=== PATIENT | female | born 1945 | race Caucasian/White ===

== ENCOUNTER → 2016-11-14 | Outpatient (CLI) | payer OTHER ==
--- NOTE | ~2016-11-14 | MY11 ---
[facility] A Service of [facility] RADIOLOGY TEXT RESULTS PATIENT: TANA FERRARI LOCATION: [facility] : 47 UNIT #: [id number] AGE: [address]: Renny Keith APRN SEX: F ORDER DR: [id number] [facility] [address] [place], [place] [address] [id number] O MR#: [id number] Acc #: [id number] NAME: TANA FERRARI : 1945 SEX: F STUDY DATE/TIME: 11/14/2016 16:20 UNIT: [facility] ROOM: STUDY DESCRIPTION: MY Mammogram Screening Dig [place] Attending Physician: Renny Keith A.P.R.N. Ordering Physician: Renny Keith A.P.R.N. Primary Care Physician: Juan Carlos Humphries M.D. MEDICAL IMAGING REPORT This report is preliminary unless electronic signature is present EXAM Bilateral digital screening mammogram CAD 11/14/2016 INDICATIONS 70-year-old female for routine screening. No reported problems and no personal history of breast cancer. Family history positive in a cousin. No surgeries. CC and MLO views of breast were can be with an approved CAD device COMPARISON 07/15/2014 07/28/2013 04/29/2012. FINDINGS Breast parenchyma is composed of scattered fibroglandular densities. The pattern is unchanged. There is no new dominant nodule, mass or suspicious cluster of microcalcifications. IMPRESSION Negative screening mammogram. A year followup recommended. Patients over the age of 40 are entered into a reminder system with target due date for the next mammogram. A result letter will also be sent to the patient. BIRADS: 1 Negative. Dictated by... Hernandez Warren M.D. THIS IS AN ELECTRONICALLY VERIFIED REPORT Hernandez Warren M.D. at 11/15/2016 4:53 PM Damian [facility] A Service of [facility] RADIOLOGY TEXT RESULTS PATIENT: TANA FERRARI LOCATION: [facility] : 47 UNIT #: [id number] AGE: [address]: Renny Keith APRN SEX: F ORDER DR: TD: 11/15/2016 12:06 JOB #: [id number] MEDICAL IMAGING REPORT COPY
--- NOTE | ~2016-11-14 | BD1 ---
[facility] A Service of [facility] RADIOLOGY TEXT RESULTS PATIENT: TANA FERRARI LOCATION: [facility] : 47 UNIT #: [id number] AGE: [address]: Renny Keith APRN SEX: F ORDER DR: [id number] [facility] [address] [place], [place] [address] [id number] O MR#: [id number] Acc #: [id number] NAME: TANA FERRARI : 1945 SEX: F STUDY DATE/TIME: 11/14/2016 16:12 UNIT: [facility] ROOM: STUDY DESCRIPTION: BD Dexa Bone Dens 1+ Site Attending Physician: Renny Keith A.P.R.N. Ordering Physician: Renny Keith A.P.R.N. Primary Care Physician: Juan Carlos Humphries M.D. MEDICAL IMAGING REPORT This report is preliminary unless electronic signature is present EXAM DXA scan 11/14/2016 HISTORY Status post menopause with no hormone replacement therapy. Osteopenia. Arthritis. Hypertension with blood pressure medication for 2 years. FINDINGS Bone mineral density in the lumbar spine from L1-L4 was 0.682 g/cm2 which is 3.3 standard deviations below the mean when compared to the young adult reference population which is characteristic of osteoporosis. This is 1.2 standard deviations below the mean when compared to the age-matched population. Bone mineral density in the left femoral neck was 0.514 g/cm2 which is 3 standard deviations below the mean when compared to the young adult reference population which is characteristic of osteoporosis. This is 1.2 standard deviations below the mean when compared to the age-matched population. Compared with 06/01/2014, there has been a decrease in bone mineral density in the left hip of 0.5%. IMPRESSION Bone mineral density in the lumbar spine characteristic of osteoporosis and within the left hip characteristic of osteoporosis. Compared with 06/01/2014, there has been a decrease in bone mineral density in the lumbar spine and the left hip. Dictated by... Az Thompson M.D. THIS IS AN ELECTRONICALLY VERIFIED REPORT Az Thompson M.D. at 11/15/2016 10:54 AM KRT/bozena [facility]. [facility] A Service of [facility] RADIOLOGY TEXT RESULTS PATIENT: TANA FERRARI [id number] 47 UNIT #: [id number] AGE: [address]: Renny Keith [employer] ADJUSTER SEX: F ORDER DR: TD: 11/14/2016 22:42 JOB #: [id number] MEDICAL IMAGING REPORT COPY
== END | disposition home or self-care (01) ==
LOC: CWCC 15:49
DX: Z13.820 Encounter for screening for osteoporosis (principal); Z12.31 Encounter for screening mammogram for malignant neoplasm of breast; M81.0 Age-related osteoporosis without current pathological fracture; Z80.3 Family history of malignant neoplasm of breast
CPT/HCPCS: 77080; G0202